=== PATIENT | female | born 1975 | race Caucasian/White ===

== ENCOUNTER 2018-03-17 18:15 | Emergency (ER) | payer OTHER ==
[~2018-03-17] VITALS: Ht 165.1 cm; Wt 95.0 kg
[2018-03-17 18:22] VITALS: BP 140/84; PULSE 100; RESP 18; TEMP 98.4; O2SAT 98
[2018-03-17] MEDS ORDERED: LEXA10TA PO (20:49)
[2018-03-17] MEDS ORDERED: WELL200T (20:49)
[2018-03-17] MEDS ORDERED: ADVA100A INH (20:49)
[2018-03-17] MEDS ORDERED: DOXY1CAP74 PO (20:49)
--- NOTE | 2018-03-17 20:59 | PD ---
HPI Chief Complaint: Abnormal Results Time Seen by Provider: 20:50 Travel History International Travel<30 days: Yes Contact w/Intl Traveler<30days: Yes Name of Country Traveled to: [place] Traveled to known affect area: No History of Present Illness HPI 42-year-old female with no significant medical history presents emergency department at the instruction of primary care provider for evaluation of elevated white count. Patient returned from [facility] approximately 9 days ago. Shortly after she states she began having a sore neck. It was not stiff. She had no other symptoms. She went and was evaluated and lab work was ordered. She was started on doxycycline 3 days ago. Lab work was completed and showed a white count 18.5 and the patient was advised to come to the emergency department. Patient states she has had no fever chills. She has noticed lymph nodes on the left anterior cervical chain and this morning submental. She denies any cough or chest congestion. She has no significant pain. She has no other symptoms to report. PFSH Past Medical History Asthma: Yes Depression: Yes Immunizations Current: Yes Ulcer: Yes Tetanus Vaccination: < 5 Years Influenza Vaccination: No ?: Unknown LMP: UNKNOWN Past Surgical History Tonsillectomy: Yes (1997) Other Surgery: Yes (hiatal hernia) Social History Alcohol Use: No Tobacco Use: No Substance Use: No Allergies-Medications (Allergen,Severity, Reaction): Coded Allergies: metformin (Verified Allergy, Unknown, 03/17/18) Reported Meds & Prescriptions Reported Meds & Active Scripts Active Reported Doxycycline 40 Mg Cap 40 Mg PO DAILY Wellbutrin SR 12 HR (Bupropion HCl) 200 Mg Tab 200 Mg Q12HR Lexapro (Escitalopram Oxalate) 10 Mg Tab 10 Mg PO DAILY Advair Diskus Inh (Fluticasone-Salmeterol Inh) 100-50 Mcg/Blist Aer 1 Puff INH BID Rinse mouth after use. Review of Systems Except as stated in HPI: all other systems reviewed are Neg Physical Exam Narrative GENERAL: Well-nourished female patient, in no acute distress SKIN: Focused skin assessment warm/dry. HEAD: Atraumatic. Normocephalic. EYES: Pupils equal and round. No scleral icterus. No injection or drainage. ENT: No nasal bleeding or discharge. Mucous membranes pink and moist. NECK: Trachea midline. No JVD. There are palpable lymph nodes along the left anterior cervical chain. There is one palpable submental lymph node. .No menigimiscus CARDIOVASCULAR: Regular rate and rhythm. No murmur appreciated. RESPIRATORY: No accessory muscle use. Clear to auscultation. Breath sounds equal bilaterally. GASTROINTESTINAL: Abdomen soft, non-tender, nondistended. Hepatic and splenic margins not palpable. MUSCULOSKELETAL: No obvious deformities. No clubbing. No cyanosis. No edema. NEUROLOGICAL: Awake and alert. No obvious cranial nerve deficits. Motor grossly within normal limits. Normal speech. PSYCHIATRIC: Appropriate mood and affect; insight and judgment normal. Data Data Last Documented VS Vital Signs Date Time Temp Pulse Resp B/P (MAP) Pulse Ox O2 Delivery O2 Flow Rate FiO2 03/17/18 22:22 20 03/17/18 21:23 Room Air 03/17/18 18:22 98.4 100 140/84 (102) 98 Orders Orders Complete Blood Count With Diff (03/17/18 21:04) Basic Metabolic Panel (Bmp) (03/17/18 21:04) Urinalysis - C+S If Indicated (03/17/18 21:) Iv Access Insert/Monitor (03/17/18 21:04) Ecg Monitoring (03/17/18 21:04) Oximetry (03/17/18 21:04) Oxygen Administration (03/17/18 21:04) Chest, Single Ap (03/17/18 21:04) Sodium Chloride 0.9% Flush (Ns Flush) (03/17/18 21:15) Ed Urine Pregnancytest Poc (03/17/18 21:04) Sodium Chlor 0.9% 1000 Ml Inj (Ns 1000 M (03/17/18 21:15) Ketorolac Inj (Toradol Inj) (03/17/18 21:15) Ldh Serum (03/17/18 22:39) Flow Cytometry (03/17/18 22:39) Labs Laboratory Tests Test 03/17/18 21:10 03/17/18 21:15 Urine Color YELLOW Urine Turbidity HAZY Urine pH 5.0 Urine Specific [place] 1.010 Urine Protein NEG mg/dL Urine Glucose (UA) NEG mg/dL Urine Ketones NEG mg/dL Urine Occult Blood SMALL Urine Nitrite NEG Urine Bilirubin NEG Urine Urobilinogen LESS THAN 2 mg/dL Urine Leukocyte Esterase NEG Urine RBC LESS THAN 1 /hpf Urine Squamous Epithelial Cells 2 /hpf Urine Mucus FEW /lpf Microscopic Urinalysis Comment CULT NOT INDICATED White Blood Count 33.2 TH/MM3 Red Blood Count 3.75 MIL/MM3 Hemoglobin 11.2 GM/DL Hematocrit 32.9 % Mean Corpuscular Volume 87.7 FL Mean Corpuscular Hemoglobin 29.8 PG Mean Corpuscular Hemoglobin Concent 34.0 % Red Cell Distribution Width 15.4 % Platelet Count 87 TH/MM3 Mean Platelet Volume 8.3 FL Neutrophils (%) (Auto) 6.3 % Lymphocytes (%) (Auto) 92.2 % Monocytes (%) (Auto) 0.6 % Eosinophils (%) (Auto) 0.4 % Basophils (%) (Auto) 0.5 % Neutrophils # (Auto) 2.1 TH/MM3 Lymphocytes # (Auto) 30.6 TH/MM3 Monocytes # (Auto) 0.2 TH/MM3 Eosinophils # (Auto) 0.1 TH/MM3 Basophils # (Auto) 0.2 TH/MM3 CBC Comment AUTO DIFF Differential Total Cells Counted 100 Neutrophils % (Manual) 5 % Band Neutrophils % 1 % Lymphocytes % 94 % Neutrophils # (Manual) 2.0 TH/MM3 Differential Comment FINAL DIFF MANUAL Toxic Granulation 2+ Platelet Estimate LOW Platelet Morphology Comment NORMAL Blood Urea Nitrogen 16 MG/DL Creatinine 0.99 MG/DL Random Glucose 113 MG/DL Calcium Level 8.9 MG/DL Sodium Level 138 MEQ/L Potassium Level 4.1 MEQ/L Chloride Level 105 MEQ/L Carbon Dioxide Level 23.4 MEQ/L Anion Gap 10 MEQ/L Estimat Glomerular Filtration Rate 61 ML/MIN MDM Medical Decision Making Medical Screen Exam Complete: Yes Emergency Medical Condition: Yes Medical Record Reviewed: Yes Differential Diagnosis lymphoma versus leukemia vs leukocytosis versus infectious process versus dehydration Narrative Course 42-year-old female presents emergency department for evaluation of elevated white count of 18.5. Patient has been on doxycycline for the last 3 days. She has not otherwise been ill. It was in case the white count was due to infection. Patient appears well. Her vital signs are stable. Laboratory Tests Test 03/17/18 21:10 03/17/18 21:15 Urine Color YELLOW Urine Turbidity HAZY Urine pH 5.0 Urine Specific [place] 1.010 Urine Protein NEG mg/dL Urine Glucose (UA) NEG mg/dL Urine Ketones NEG mg/dL Urine Occult Blood SMALL Urine Nitrite NEG Urine Bilirubin NEG Urine Urobilinogen LESS THAN 2 mg/dL Urine Leukocyte Esterase NEG Urine RBC LESS THAN 1 /hpf Urine Squamous Epithelial Cells 2 /hpf Urine Mucus FEW /lpf Microscopic Urinalysis Comment CULT NOT INDICATED White Blood Count 33.2 TH/MM3 Red Blood Count 3.75 MIL/MM3 Hemoglobin 11.2 GM/DL Hematocrit 32.9 % Mean Corpuscular Volume 87.7 FL Mean Corpuscular Hemoglobin 29.8 PG Mean Corpuscular Hemoglobin Concent 34.0 % Red Cell Distribution Width 15.4 % Platelet Count 87 TH/MM3 Mean Platelet Volume 8.3 FL Neutrophils (%) (Auto) 6.3 % Lymphocytes (%) (Auto) 92.2 % Monocytes (%) (Auto) 0.6 % Eosinophils (%) (Auto) 0.4 % Basophils (%) (Auto) 0.5 % Neutrophils # (Auto) 2.1 TH/MM3 Lymphocytes # (Auto) 30.6 TH/MM3 Monocytes # (Auto) 0.2 TH/MM3 Eosinophils # (Auto) 0.1 TH/MM3 Basophils # (Auto) 0.2 TH/MM3 CBC Comment AUTO DIFF Blood Urea Nitrogen 16 MG/DL Creatinine 0.99 MG/DL Random Glucose 113 MG/DL Calcium Level 8.9 MG/DL Sodium Level 138 MEQ/L Potassium Level 4.1 MEQ/L Chloride Level 105 MEQ/L Carbon Dioxide Level 23.4 MEQ/L Anion Gap 10 MEQ/L Estimat Glomerular Filtration Rate 61 ML/MIN Last Impressions Chest X-Ray 03/17/18 210 Signed Impressions: CONCLUSION: No active disease. I discussed the patient with Dr. 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 He recommends first appt with the oncology office and LDH and flow cytometry be collected. Plan is discussed with the patient. She is in agreement with this plan of care. Diagnosis Primary Impression: Leukocytosis Qualified Codes: D72.820 - Lymphocytosis (symptomatic) Referrals: Russ Bautista MD [facility] Patient Instructions: General Instructions, Leukocytosis (ED) Additional Instructions: Contact the radiation oncology center and make an appointment with the first available stamping die maker/oncologist Return immediately with any acute worsening of symptoms Med/Other Pt SpecificInfo: No Change to Meds Disposition: 01 DISCHARGE HOME Condition: Stable Nazia Iyer YENIFER Mar 17, 2018 20:59
[2018-03-17] MEDS ORDERED: SODIUM CHLORIDE 0.9% FLUSH 10 ML FLUSH IVF PRN (21:15)
[2018-03-17] MEDS ORDERED: KETOROLAC TROMETHAMINE 30 MG/ML (IVP) VIAL IV PUSH ONE (21:15)
[2018-03-17] MEDS ORDERED: SODIUM CHLOR 0.9% 1000 ML INJ 1,000 ML IV ONE (21:15)
[2018-03-17 21:24] VITALS: RESP 20
[2018-03-17 21:46] LABS: AUTOMATED NEUTROPHIL # 2.1 TH/MM3 (1.8-7.7); BASOPHIL # 0.2 TH/MM3 (0-0.2); BASOPHIL % 0.5 % (0.0-2.0); EOSINOPHIL # 0.1 TH/MM3 (0-0.4); EOSINOPHIL % 0.4 % (0.0-4.0); HEMATOCRIT 32.9 % (35.0-46.0); HEMOGLOBIN 11.2 GM/DL (11.6-15.3); LYMPH % 92.2 % (9.0-44.0); LYMPHOCYTE # 30.6 TH/MM3 (1.0-4.8); MEAN CELL VOLUME 87.7 FL (80.0-100.0); MEAN CORPUSCULAR HEMOGLOBIN 29.8 PG (27.0-34.0); MEAN PLATELET VOLUME 8.3 FL (7.0-11.0); MONO % 0.6 % (0.0-8.0); MONOCYTE # 0.2 TH/MM3 (0-0.9); NEUT % 6.3 % (16.0-70.0); PLATELET COUNT 87 TH/MM3 (150-450); RED BLOOD COUNT 3.75 MIL/MM3 (4.00-5.30); RED CELL DISTRIBUTION WIDTH 15.4 % (11.6-17.2); WHITE BLOOD COUNT 33.2 TH/MM3 (4.0-11.0)
[2018-03-17 21:48] LABS: BILIRUBIN, URINE NEG (NEG); BLOOD, URINE SMALL (NEG); GLUCOSE,URINE NEG (NEG); KETONE, URINE NEG (NEG); MUCUS URINE FEW /lpf (OCC); NITRITE,URINE NEG (NEG); SQUAMOUS EPITHELIAL CELL URINE 2 /hpf (0-5); URINE COLOR YELLOW (YELLW/STRAW); URINE LEUKOCYTE ESTERASE NEG (NEG)
[2018-03-17 21:58] LABS: BICARBONATE 23.4 MEQ/L (21.0-32.0); CALCIUM 8.9 MG/DL (8.5-10.1); CREATININE 0.99 MG/DL (0.50-1.00)
--- NOTE | 2018-03-17 22:16 | RADRPT ---
EXAM DATE: 03/17/2018 9:46 PM EDT AGE/SEX: 42 years / Female INDICATIONS: Chest discomfort, abnormal blood work CLINICAL DATA: This is the patient's initial encounter. Patient reports that signs and symptoms have been present for 1 day and indicates a pain score of 0/10. MEDICAL/SURGICAL HISTORY: None. None. COMPARISON: No prior exams available for comparison. FINDINGS: A single AP view of the chest demonstrates the lungs to be symmetrically aerated without evidence of mass, infiltrate or effusion. The cardiomediastinal contours are unremarkable. Osseous structures a re intact. CONCLUSION: No active disease. Electronically signed by: Adolfo James MD 03/17/2018 10:14 PM EDT
[2018-03-17 22:22] VITALS: RESP 20
[2018-03-17 22:32] LABS: BANDS 1 % (0-6); LYMPHOCYTES 94 % (9-44); POLYS (SEG NEUTROPHILS) 5 % (16-70)
[2018-03-17 22:34] LABS: TOXIC GRANULATION 2+ (NORMAL)
== END 2018-03-17 23:23 | disposition home or self-care (01) ==
LOC: NEPC 18:15
DX: D72.820 Lymphocytosis (symptomatic) (principal); F32.9 Major depressive disorder, single episode, unspecified
CPT/HCPCS: 71045; 80048; 81001; 83615; 84703; 85007; 85027; 96361; 96374; 99284; J1885; J7030

== ENCOUNTER 2018-05-12 15:28 | Observation (INO) ==
[2018-05-12] MEDS ORDERED: Heparin Central Flush 100 UNIT/ML 5 ML Vial IV.FLUSH PRN (17:27)
[2018-05-12] MEDS ORDERED: Acetaminophen 325 MG Tablet PO PRN (18:24)
[2018-05-13] MEDS ORDERED: Heparin Central Flush 100 UNIT/ML 5 ML Vial IV.FLUSH SCH (09:00)
== END 2018-05-12 19:46 | disposition home or self-care (01) ==
LOC: HSDI
PROVIDERS: ADMIT Internal Medicine Hematology & Oncology; ATTEND Internal Medicine Hematology & Oncology
DX: C91.00 Acute lymphoblastic leukemia not having achieved remission

== ENCOUNTER 2018-08-16 08:09 | Inpatient (IN) ==
[2018-08-16 10:20] LABS: Baso % (Auto) 0.1 % (0.0-2.0); Eos % (Auto) 0.1 % (0.0-4.0); Hematocrit 22.5 % (35.0-46.0); Hemoglobin 7.6 gm/dL (11.6-15.3); Lymph # (Auto) 0.5 th/mm3 (1.0-4.8); Lymph % (Auto) 12.9 % (9.0-44.0); Mean Corpuscular HGB Conc 33.8 % (32.0-36.0); Mean Corpuscular Hemoglobin 33.6 pg (27.0-34.0); Mean Corpuscular Volume 99.6 fL (80.0-100.0); Mean Platelet Volume 7.2 fL (7.0-11.0); Mono # (Auto) 0.4 th/mm3 (0.0-0.9); Mono % (Auto) 9.8 % (0.0-8.0); Neut # (Auto) 2.9 th/mm3 (1.8-7.7); Neut % (Auto) 77.1 % (16.0-70.0); Platelet Count 257 th/mm3 (150-450); Red Blood Count 2.26 mil/mm3 (4.00-5.30); Red Cell Distribution Width 25.6 % (11.6-17.2); White Blood Count 3.7 th/mm3 (4.0-11.0)
[2018-08-16 10:38] LABS: Alanine Aminotransferase 22 U/L (10-53); Albumin 3.3 g/dL (3.4-5.0); Anion Gap 6 meq/L (5-15); Aspartate Aminotransferase 14 U/L (15-37); Blood Urea Nitrogen 10 mg/dL (7-18); Calcium 8.6 mg/dL (8.5-10.1); Carbon Dioxide 26.9 meq/L (21.0-32.0); Chloride 111 meq/L (98-107); Glomerular Filtration Rate 83 mL/min (>89); Glucose,Random 91 mg/dL (74-106); Potassium 3.6 meq/L (3.5-5.1); Sodium 144 meq/L (136-145)
[2018-08-16 10:40] LABS: Alkaline Phosphatase 64 U/L (45-117); Total Protein 6.1 g/dL (6.4-8.2)
[2018-08-16 10:54] LABS: Dimorphic RBC Present; Ovalocytes 1+; Platelet Estimate Normal (Normal); Platelet Morphology Normal (Normal); Tear Drop Cells 1+
[2018-08-16] MEDS: SODIUM CHLOR 0.9% IV.SIG SCH ×2 (15:26→18:15)
[2018-08-16] MEDS: MESNA IV.SIG SCH (15:26)
[2018-08-16] MEDS ORDERED: GRANISETRON IV.SIG ONE ×2 (17:00)
[2018-08-16] MEDS ORDERED: SODIUM CHLOR 0.9% IV.SIG ONE ×2 (17:00)
[2018-08-16] MEDS ORDERED: DEXAMETHASONE IV.SIG ONE ×2 (17:00)
[2018-08-16] MEDS: CYCLOPHOSPHAMIDE IV.SIG SCH (18:15)
[2018-08-16] MEDS ORDERED: Acetaminophen 325 MG Tablet PO PRN (19:27)
[2018-08-16] MEDS: GRANISETRON 1 MG PO SCH (20:47)
[2018-08-16] MEDS: ALPRAZolam 0.5 MG Tablet PO PRN (22:24)
[2018-08-16] MEDS: DEXTROSE 5% IV.SIG SCH ×2 (22:25)
[2018-08-16] MEDS: WATER IV.SIG SCH ×2 (22:25)
[2018-08-16] MEDS: SODIUM ACETATE IV.SIG SCH ×2 (22:25)
--- NOTE | 2018-08-16 23:20 | MH ---
cc: Russ Bautista MD DATE OF ADMISSION: 08/16/2018 REASON FOR ADMISSION: A 42-year-old female admitted for consolidation chemotherapy on a hyper-CVAD regimen. 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 PATIENT PROFILE: The patient is a 42-year-old female. She is single. She was once and approximately 20 years ago. She has no children. She was born in [place] and has lived in [place] since 2016. She went to the [employer] in [place] and studied chemistry. 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 Alcohol intake is 1-2 drinks a week. She stopped smoking 25 years ago and had smoked a pack of cigarettes per day for 5 years. HISTORY OF PRESENT ILLNESS: The patient is a 42-year-old female who developed neck stiffness in 03/2018. She went to the emergency room at [facility] after her primary care physician found an elevated white count. On 03/17/2018, she had a hemoglobin of 11.2, hematocrit 32, white count 33,000, platelet count 87,000. 69% of the cells were lymphoblasts. She was diagnosed with acute lymphoblastic leukemia. I referred her to the [facility] where she saw Dr. Pryor. She was hospitalized with a diagnosis of acute lymphoblastic leukemia, which was [place] chromosome negative. She was started on treatment on 03/24/2018 with a hyper-CVAD regimen. She has entered a remission. She is due for a bone marrow transplant in 10/2018. Dr. Pryor from [facility] asked me to give her her current round of chemotherapy locally, so she would not have to go to [place]. She is now admitted to [place] for hyper-CVAD chemotherapy where she will receive Cytoxan IV q. 12 hours for 6 treatments, dexamethasone 40 mg daily for 4 doses, doxorubicin on day 4 and vincristine on day 4. She will also receive mesna to prevent cystitis. On day 2, she will receive intrathecal methotrexate 12 mg. On day 4, she will receive vincristine 2 mg. She is doing well. She feels well. She is having no neurologic problems. LABORATORY DATA: On admission, hemoglobin is 11.6, white count 3700, and platelets are 257,000. CMP is unremarkable. BUN is 10 with creatinine 0.7. SURGICAL HISTORY: 1. Hiatal hernia repair in 2001. 2. Repair of deviated septum. 3. Tonsillectomy. PAST MEDICAL HISTORY: 1. Acute lymphoblastic leukemia, diagnosed 03/2018. 2. Mild asthma. 3. Gastroesophageal reflux. 4. Occasional migraines. 5. Obsessive-compulsive disorder, taking Lexapro and Wellbutrin. ALLERGIES: METFORMIN. FAMILY HISTORY: The patient's mother is alive as well as father. Father has prostate cancer. She has 2 sisters and a brother living, REVIEW OF SYSTEMS: Notable for minimal fatigue. 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 PHYSICAL EXAMINATION: GENERAL: Reveals a well-appearing female. VITAL SIGNS: She is afebrile. Temperature is 98.5, although on admission, she had 100 temperature. Pulse is 80, respiratory rate 18, blood pressure 150/80, O2 saturation 99%. The patient appears well. HEENT: Sclerae and conjunctivae normal. Oropharynx is unremarkable. NECK: There is no cervical, supraclavicular, axillary or inguinal adenopathy. HEART: Regular rate and rhythm. LUNGS: Clear. ABDOMEN: Without hepatosplenomegaly or masses. EXTREMITIES: Without edema. MUSCULOSKELETAL: No bone pain. NEUROLOGIC: No weakness. Cognition and affect normal. SKIN: Normal. The patient has a PICC line in place in the arm, which looks fine. ASSESSMENT AND PLAN: A 42-year-old female with acute lymphoblastic leukemia. She is undergoing consolidation therapy. Orders have been written. She has received 2 units of packed cells, which have been irradiated. She will continue with her current chemotherapy with Cytoxan, mesna to protect the bladder, Decadron, Adriamycin, and vincristine. Following the completion of the chemotherapy, she will be discharged from the hospital and receive Neulasta this coming Tuesday. She will receive intrathecal methotrexate 12 mg on . I am surprised to see the temperature of 100 on admission. When repeated, it is now normal. It will be watched closely. She has not been ill. In 10/2018, she will undergo an allogenic bone marrow transplant and hopefully following this there will be no further therapy. MD CHAD Melendrez/maryjo , 10:35 PM , 10:48 PM MEGAN
[2018-08-16] MEDS ORDERED: Heparin Central Flush 100 UNIT/ML 5 ML Vial IV.FLUSH PRN (23:36)
[2018-08-17] MEDS: GRANISETRON 1 MG PO SCH ×2 (05:13→12:36)
[2018-08-17 06:17] LABS: Baso % (Auto) 0.2 % (0.0-2.0); Eos % (Auto) 0.1 % (0.0-4.0); Hematocrit 31.2 % (35.0-46.0); Hemoglobin 10.6 gm/dL (11.6-15.3); Lymph # (Auto) 0.4 th/mm3 (1.0-4.8); Lymph % (Auto) 6.3 % (9.0-44.0); Mean Corpuscular HGB Conc 34.1 % (32.0-36.0); Mean Corpuscular Hemoglobin 32.4 pg (27.0-34.0); Mean Corpuscular Volume 95.1 fL (80.0-100.0); Mean Platelet Volume 7.2 fL (7.0-11.0); Mono # (Auto) 0.1 th/mm3 (0.0-0.9); Mono % (Auto) 1.4 % (0.0-8.0); Neut # (Auto) 5.2 th/mm3 (1.8-7.7); Platelet Count 238 th/mm3 (150-450); Red Blood Count 3.28 mil/mm3 (4.00-5.30); Red Cell Distribution Width 19.1 % (11.6-17.2); White Blood Count 5.6 th/mm3 (4.0-11.0)
[2018-08-17] MEDS: CYCLOPHOSPHAMIDE IV.SIG SCH ×2 (06:18→18:08)
[2018-08-17] MEDS: SODIUM CHLOR 0.9% IV.SIG SCH ×5 (06:18→18:08)
[2018-08-17] MEDS: Escitalopram 10 MG Tablet PO SCH (08:30)
[2018-08-17] MEDS: buPROPion 150 MG XL 24 HR Tablet PO SCH (08:30)
[2018-08-17] MEDS: valACYclovir 500 MG Tab PO SCH (08:30)
[2018-08-17] MEDS: Heparin Central Flush 100 UNIT/ML 5 ML Vial IV.FLUSH SCH (08:31)
[2018-08-17 08:40] LABS: Dimorphic RBC Present; Platelet Estimate Normal (Normal); Platelet Morphology Normal (Normal); Tear Drop Cells 1+
[2018-08-17 08:58] LABS: Activated Partial Thrombo Time 24.4 sec (23.4-31.7); INR 1.1 Ratio
--- NOTE | 2018-08-17 09:26 | P.PNONC ---
Subjective Interval history: Afebrile. Patient sitting up in bed, currently working on her computer. Receiving chemotherapy, tolerating well. She denies abdominal pain, nausea, diarrhea. Objective Vital Signs/Intake & Output: Vital Signs 08/16/18 09:17 08/16/18 12:00 08/16/18 13:15 Temperature 98.9 F 98.1 F 98.7 F Pulse Rate 84 80 Respiratory Rate 18 18 18 Blood Pressure 122/76 127/79 Pulse Oximetry 08/16/18 13:31 08/16/18 16:05 08/16/18 17:07 Temperature 97.4 F L 98.8 F Pulse Rate 74 75 Respiratory Rate 18 18 Blood Pressure 132/82 143/82 H Pulse Oximetry 99 100 98 08/16/18 19:20 08/16/18 19:29 08/16/18 19:36 Temperature 100.0 F H 100 F H Pulse Rate 88 88 Respiratory Rate 18 18 18 Blood Pressure 127/70 127/70 Pulse Oximetry 99 99 08/16/18 21:08 08/17/18 00:00 08/17/18 04:00 Temperature 98.5 F 97.9 F 98.2 F Pulse Rate 85 77 78 Respiratory Rate 18 18 18 Blood Pressure 153/84 H 117/67 127/71 Pulse Oximetry 98 98 08/17/18 08:24 Temperature 98 F Pulse Rate 82 Respiratory Rate 18 Blood Pressure 130/66 Pulse Oximetry 98 Intake & Output 08/16/18 08/17/18 08/17/18 18:59 06:59 18:59 Intake Total 0 / 0 791 / 791 Output Total 1300 / 1300 Balance 0 / 0 -509 / -509 Weight 92.3 kg 92 kg Intake: IV 311 / 311 Cytoxan Inj 594 MG In NS Inj 250 / 250 250 ML @ 83.333 mls/hr IV.SIG Q12H [facility] Rx#:[id number] Decadron Inj 40 MG Kytril Inj 1 61 / 61 MG In NS Inj 50 ML @ 244 mls/ hr IV.SIG ONCE ONE Rx#:[id number] Oral 480 / 480 Intake (Blood Product) Amt 0 / 0 0 / 0 Rbc As-3 Leukoreduced Irrad 0 / 0 Unit [id number] Rbc As-3 Leukoreduced Irrad 0 / 0 Unit [id number] Output: Urine 1300 / 1300 Other: Date of Last Bowel Movement 08/16/18 Weight On Admission 92.3 kg Result Diagrams: 08/17/18 05:00 08/16/18 09:45 Laboratory Results: Laboratory Results - last 24 hr 08/16/18 08/16/18 08/16/18 09:45 09:45 10:00 WBC 3.7 L RBC 2.26 L Hgb 7.6 L Hct 22.5 L MCV 99.6 MCH 33.6 MCHC 33.8 RDW 25.6 H D Plt Count 257 MPV 7.2 Prelim Diff (Auto) Slide review pending Neut % (Auto) 77.1 H Lymph % (Auto) 12.9 Smyth % (Auto) 9.8 H Eos % (Auto) 0.1 Baso % (Auto) 0.1 Neut # (Auto) 2.9 Lymph # (Auto) 0.5 L Smyth # (Auto) 0.4 Eos # (Auto) 0.0 Baso # (Auto) 0.0 WBC Differential . Diff Scan Auto diff confirmed Differential Comment . Platelet Estimate Normal Platelet Morphology Normal Dimorphic RBCs Present H Tear Drop Cells 1+ H Ovalocytes 1+ H PT INR APTT Sodium 144 Potassium 3.6 Chloride 111 H Carbon Dioxide 26.9 Anion Gap 6 BUN 10 Creatinine 0.76 Estimated GFR 83 L Random Glucose 91 Calcium 8.6 Total Bilirubin 0.3 AST 14 L ALT 22 Alkaline Phosphatase 64 Total Protein 6.1 L Albumin 3.3 L Blood Type O Positive Antibody Screen Negative MTS Gel Crossmatch See Detail 08/17/18 08/17/18 05:00 08:30 WBC 5.6 D RBC 3.28 L Hgb 10.6 L D Hct 31.2 L MCV 95.1 D MCH 32.4 MCHC 34.1 RDW 19.1 H D Plt Count 238 MPV 7.2 Prelim Diff (Auto) Slide review pending Neut % (Auto) 92.0 H Lymph % (Auto) 6.3 L Smyth % (Auto) 1.4 Eos % (Auto) 0.1 Baso % (Auto) 0.2 Neut # (Auto) 5.2 Lymph # (Auto) 0.4 L Smyth # (Auto) 0.1 Eos # (Auto) 0.0 Baso # (Auto) 0.0 WBC Differential . Diff Scan Auto diff confirmed Differential Comment . Platelet Estimate Normal Platelet Morphology Normal Dimorphic RBCs Present H Tear Drop Cells 1+ H Ovalocytes PT 11.0 INR 1.1 APTT 24.4 Sodium Potassium Chloride Carbon Dioxide Anion Gap BUN Creatinine Estimated GFR Random Glucose Calcium Total Bilirubin AST ALT Alkaline Phosphatase Total Protein Albumin Blood Type Antibody Screen MTS Gel Crossmatch Medications: Active Medications Generic Name Dose Route Start Last Admin Trade Name Freq PRN Reason Stop Dose Admin Alprazolam 0.5 mg 08/16/18 20:00 08/16/18 22:24 Xanax PO 0.5 mg HS PRN Administration SLEEP Bupropion HCl 150 mg 08/17/18 09:00 08/17/18 08:30 Wellbutrin Xl PO 150 mg DAILY CORINA Administration Escitalopram Oxalate 10 mg 08/17/18 09:00 08/17/18 08:30 Lexapro PO 10 mg DAILY CORINA Administration Granisetron HCl 1 mg 08/16/18 13:30 08/17/18 05:13 Kytril PO 08/20/18 01:31 1 mg Q12H CORINA Administration Heparin Sodium (Porcine) 0 unit 08/17/18 09:00 08/17/18 08:31 Heparin Central Flush IV.FLUSH 500 unit DAILY CORINA Administration Mes[place] 1,188 mg/ Sodium 511.88 mls @ 21.328 mls/hr 08/16/18 13:00 08/16/18 15: 26 Chloride IV.SIG 08/19/18 08:59 21.33 mls/hr DAILY CORINA Administration Cyclophosphamide 594 mg/ 250 mls @ 83.333 mls/hr 08/16/18 14:00 08/17/18 06: 18 Sodium Chloride IV.SIG 08/19/18 04:59 83.33 mls/hr Q12H CORINA Administration Sodium Acetate 100 meq/ 1,025 mls @ 70 mls/hr 08/16/18 16:30 08/16/18 22:25 Dextrose IV.SIG 70 mls/hr .[id number] CORINA Administration Sodium Chloride 0 ml 08/17/18 09:00 08/17/18 08:31 Ns Flush IV.FLUSH 10 ml DAILY CORINA Administration Valacyclovir HCl 500 mg 08/17/18 09:00 08/17/18 08:30 Valtrex PO 500 mg DAILY CORINA Administration Objective Remarks: GENERAL: Well-nourished, well-developed female patient, in no acute distress. SKIN: Warm and dry. HEAD: Normocephalic. EYES: No scleral icterus. No injection or drainage. NECK: Supple, trachea midline. CARDIOVASCULAR: Regular rate and rhythm without murmurs. RESPIRATORY: Breath sounds equal bilaterally. No accessory muscle use. GASTROINTESTINAL: Abdomen soft, non-tender, nondistended. EXTREMITIES: No cyanosis, or edema. MUSCULOSKELETAL: Adequate muscle tone. NEUROLOGICAL: No obvious focal deficit. Awake, alert, and oriented x3. PSYCHIATRIC: Appropriate mood and affect; insight and judgment normal. Assessment/Plan - Plan Ms. Brarett is a 42-year-old female who is been admitted to this facility for consolidation chemotherapy on hyper CVAD regimen. Plan: 1. Acute lymphoblastic leukemia, admitted for consolidation chemotherapy with hyper-CVAD regimen. Patient tolerating well, scheduled for intrathecal methotrexate this afternoon. 2.Continue to monitor CBC and CMP. - Attending Statement The exam, history, and the medical decision-making described in the above note were completed with the assistance of the mid-level provider. I reviewed and agree with the findings presented. I attest that I had a [id number] encounter with the patient on the same day, and personally performed and documented my assessment and findings in the medical record. She tolerated her intrathecal methotrexate uneventfully. She is doing well. She is tolerating the chemotherapy. I spoke with the nursing staff and I believe she will receive the Adriamycin and vincristine on Tuesday and subsequently be discharged. Outpatient follow-up discussed.
[2018-08-17] MEDS: ALPRAZolam 0.5 MG Tablet PO PRN ×2 (10:05→21:41)
[2018-08-17] MEDS ORDERED: SODIUM CHLOR 0.9% IT ONE ×2 (10:30)
[2018-08-17] MEDS ORDERED: METHOTREXATE IT ONE ×2 (10:30)
--- NOTE | 2018-08-17 10:59 | P.RAD ---
Post Procedure Progress Note - Pre Procedure Diagnosis (1) ALL (acute lymphoid leukemia) in remission - Post Procedure Diagnosis (1) ALL (acute lymphoid leukemia) in remission - Procedure Information Procedure Date: 08/17/18 Supervising Radiologist: Jair Rainey MD Estimated blood loss (mL): 0 Anesthesia: Local - Plan of Activity Patient to Unit: ROPU Patient Condition: Good Additional Comments: LP completed without difficulty. Position of the needle confirmed in the AP and lateral projection 2 cc of clear csf removed. Chemo dose verified Chemo injected without difficulty. Pt tolerated the procedure well. See PACS Report for procedural detail/treatment.
[2018-08-17] MEDS: MESNA IV.SIG SCH (16:24)
[2018-08-17] MEDS: DEXAMETHASONE IV.SIG SCH ×2 (17:19)
[2018-08-17] MEDS: GRANISETRON IV.SIG SCH ×2 (17:19)
[2018-08-17] MEDS: WATER IV.SIG SCH ×2 (18:09)
[2018-08-17] MEDS: SODIUM ACETATE IV.SIG SCH ×2 (18:09)
[2018-08-17] MEDS: DEXTROSE 5% IV.SIG SCH ×2 (18:09)
[2018-08-18] MEDS: GRANISETRON 1 MG PO SCH ×2 (05:01→18:28)
[2018-08-18 05:10] LABS: Hematocrit 30.3 % (35.0-46.0); Hemoglobin 10.5 gm/dL (11.6-15.3); Lymph # (Auto) 0.3 th/mm3 (1.0-4.8); Lymph % (Auto) 4.8 % (9.0-44.0); Mean Corpuscular HGB Conc 34.8 % (32.0-36.0); Mean Corpuscular Volume 94.8 fL (80.0-100.0); Mean Platelet Volume 7.6 fL (7.0-11.0); Mono # (Auto) 0.1 th/mm3 (0.0-0.9); Mono % (Auto) 2.3 % (0.0-8.0); Neut % (Auto) 92.9 % (16.0-70.0); Platelet Count 240 th/mm3 (150-450); Red Cell Distribution Width 20.3 % (11.6-17.2); White Blood Count 5.4 th/mm3 (4.0-11.0)
[2018-08-18 05:38] LABS: Albumin 3.4 g/dL (3.4-5.0); Anion Gap 8 meq/L (5-15); Aspartate Aminotransferase 9 U/L (15-37); Blood Urea Nitrogen 12 mg/dL (7-18); Calcium 8.4 mg/dL (8.5-10.1); Carbon Dioxide 28.1 meq/L (21.0-32.0); Chloride 109 meq/L (98-107); Glomerular Filtration Rate Greater Than 89 mL/min (>89); Glucose,Random 153 mg/dL (74-106); Potassium 3.8 meq/L (3.5-5.1); Sodium 145 meq/L (136-145)
[2018-08-18 05:42] LABS: Alanine Aminotransferase 23 U/L (10-53); Alkaline Phosphatase 66 U/L (45-117); Total Protein 6.2 g/dL (6.4-8.2)
[2018-08-18] MEDS: SODIUM CHLOR 0.9% IV.SIG SCH ×5 (06:01→19:27)
[2018-08-18] MEDS: CYCLOPHOSPHAMIDE IV.SIG SCH ×2 (06:01→19:27)
--- NOTE | 2018-08-18 07:30 | IR ---
EXAM DATE: 08/17/2018 11:11 AM EST AGE/SEX: 42 years / Female INDICATIONS: Patient presents with acute lymphoblastic leukemia here for a lumbar puncture with dose of chemotherapy. CLINICAL DATA: This is the patient's initial encounter. Patient reports that signs and symptoms have been present for 4 - 6 months and indicates a pain score of 0/10. MEDICAL/SURGICAL HISTORY: Arthritis. acute lymphoblastic leukemia Tonsillectomy. Deviated sept um, Hiatal Hernia repair COMPARISON: No prior exams available for comparison. FLUORO TIME (min): .8 IMAGE SERIES: 2 ACCESS SITE: L3-4 LUMBAR PUNCTURE TIME: 10:50 hours PROCEDURE: 1. Fluoroscopic guided lumbar puncture. 2. Instillation of chemotherapy. The risks, benefits and alternatives to the procedure were explained and verbal and written consent w as obtained. The site was prepped in sterile fashion. Full sterile technique was used, including ca p, mask, sterile gloves and gown and a large sterile sheet. Hand hygiene and 2% chlorhexidine and/or betadine/alcohol prep was utilized per protocol for cutaneous antisepsis. The skin and subcutaneous tissues were infiltrated with local anesthetic solution. With fluoroscopic guidance the lumbar thecal sac was punctured at the level above. There was immediat e return of clear CSF. Position was confirmed in the AP and lateral projections. The prescribed chemo therapeutic was injected. The patient tolerated the procedure well and there were no complications. CONCLUSION: 1. Uncomplicated fluoroscopically guided lumbar puncture with chemotherapy injection. Electronically signed by: Jair Rainey MD 08/18/2018 7:29 AM EST
[2018-08-18 08:15] LABS: Dimorphic RBC Present; Ovalocytes 1+; Polychromasia 2.5 % (0.0-1.9); Tear Drop Cells 1+
--- NOTE | 2018-08-18 09:13 | P.PNONC ---
Subjective Interval history: Feels well. No complaints. Tolerating chemotherapy well. Objective Vital Signs/Intake & Output: Vital Signs 08/17/18 11:22 08/17/18 12:20 08/17/18 16:22 Temperature 97.4 F L 98 F 98.2 F Pulse Rate 80 82 75 Respiratory Rate 18 18 18 Blood Pressure 120/70 132/75 137/74 Pulse Oximetry 98 100 98 08/17/18 20:00 08/18/18 00:00 08/18/18 04:00 Temperature 98.7 F 98.2 F 97.7 F Pulse Rate 76 79 77 Respiratory Rate 18 18 16 Blood Pressure 136/38 L 125/70 137/80 Pulse Oximetry 94 L 96 98 Intake & Output 08/17/18 08/18/18 08/18/18 18:59 06:59 18:59 Intake Total 3807.88 / 3807.88 750 / 750 Output Total 1600 / 1600 1900 / 1900 Balance 2207.88 / 2207.88 -1150 / -1150 Weight 93 kg Intake: IV 1847.88 / 1847.88 250 / 250 Cytoxan Inj 594 MG In NS Inj 250 / 250 250 / 250 250 ML @ 83.333 mls/hr IV.SIG Q12H [facility] Rx#:[id number] Decadron Inj 40 MG Kytril Inj 1 61 / 61 MG In NS Inj 50 ML @ 244 mls/ hr IV.SIG Q24H [facility] Rx#:[id number] Mesnex Inj 1,188 MG In NS Inj 511.88 / 511.88 500 ML @ 21.328 mls/hr IV.SIG DAILY [facility] Rx#:[id number] Sodium Acetate Inj 100 MEQ In 1025 / 1025 D5W Inj 1,000 ML @ 70 mls/hr IV .SIG .[id number] [facility] Rx#:[id number] Oral 1960 / 1960 500 / 500 Output: Urine 1600 / 1600 1900 / 1900 Other: Date of Last Bowel Movement 08/16/18 08/16/18 Result Diagrams: 08/18/18 04:00 08/18/18 04:00 Laboratory Results: Laboratory Results - last 24 hr 08/18/18 08/18/18 04:00 04:00 WBC 5.4 RBC 3.20 L Hgb 10.5 L Hct 30.3 L MCV 94.8 MCH 33.0 MCHC 34.8 RDW 20.3 H Plt Count 240 MPV 7.6 Prelim Diff (Auto) Slide review pending Neut % (Auto) 92.9 H Lymph % (Auto) 4.8 L [place] % (Auto) 2.3 Eos % (Auto) 0.0 Baso % (Auto) 0.0 Neut # (Auto) 5.0 Lymph # (Auto) 0.3 L [place] # (Auto) 0.1 Eos # (Auto) 0.0 Baso # (Auto) 0.0 WBC Differential . Diff Scan Auto diff confirmed Differential Comment . Dimorphic RBCs Present H Polychromasia 2.5 H Tear Drop Cells 1+ H Ovalocytes 1+ H Sodium 145 Potassium 3.8 Chloride 109 H Carbon Dioxide 28.1 Anion Gap 8 BUN 12 Creatinine 0.65 Estimated GFR Greater than 89 Random Glucose 153 H Calcium 8.4 L Total Bilirubin 0.3 AST 9 L ALT 23 Alkaline Phosphatase 66 Total Protein 6.2 L Albumin 3.4 Imaging Studies: Impressions Lumbar Puncture 08/17/18 00:00 CONCLUSION: 1. Uncomplicated fluoroscopically guided lumbar puncture with chemotherapy injection. Medications: Active Medications Generic Name Dose Route Start Last Admin Trade Name Freq PRN Reason Stop Dose Admin Alprazolam 0.5 mg 08/17/18 11:33 08/17/18 21:41 Xanax PO 0.5 mg Q8H PRN Administration Sleep or anxiety Bupropion HCl 150 mg 08/17/18 09:00 08/17/18 08:30 Wellbutrin Xl PO 150 mg DAILY [facility] Administration Escitalopram Oxalate 10 mg 08/17/18 09:00 08/17/18 08:30 Lexapro PO 10 mg DAILY [facility] Administration Granisetron HCl 1 mg 08/16/18 13:30 08/18/18 05:01 Kytril PO 08/20/18 01:31 1 mg Q12H [facility] Administration Heparin Sodium (Porcine) 0 unit 08/17/18 09:00 08/17/18 08:31 Heparin Central Flush IV.FLUSH 500 unit DAILY [facility] Administration [place] 1,188 mg/ Sodium 511.88 mls @ 21.328 mls/hr 08/16/18 13:00 08/17/18 16: 24 Chloride IV.SIG 08/19/18 08:59 21.33 mls/hr DAILY [facility] Administration Cyclophosphamide 594 mg/ 250 mls @ 83.333 mls/hr 08/16/18 14:00 08/18/18 06: 01 Sodium Chloride IV.SIG 08/19/18 04:59 83.3 mls/hr Q12H [facility] Administration Sodium Acetate 100 meq/ 1,025 mls @ 70 mls/hr 08/16/18 16:30 08/17/18 18:09 Dextrose IV.SIG 70 mls/hr .[id number] [facility] Administration Dexamethasone Sodium Phosphate 61 mls @ 244 mls/hr 08/17/18 17:00 08/17/18 17 :35 40 mg/ Granisetron HCl 1 mg/ IV.SIG 08/19/18 17:14 Infused Sodium Chloride Q24H [facility] Infusion Sodium Chloride 0 ml 08/17/18 09:00 08/17/18 08:31 Ns Flush IV.FLUSH 10 ml DAILY [facility] Administration Valacyclovir HCl 500 mg 08/17/18 09:00 08/17/18 08:30 Valtrex PO 500 mg DAILY [facility] Administration Objective Remarks: GENERAL: Well-nourished, well-developed patient. SKIN: Warm and dry. HEAD: Normocephalic. EYES: No scleral icterus. No injection or drainage. NECK: Supple, trachea midline. No JVD or lymphadenopathy. LYMPHATIC: No adenopathy. CARDIOVASCULAR: Regular rate and rhythm without murmurs. RESPIRATORY: Breath sounds equal bilaterally. No accessory muscle use. GASTROINTESTINAL: Abdomen soft, non-tender, nondistended. EXTREMITIES: No cyanosis, or edema. MUSCULOSKELETAL: Adequate muscle tone. NEUROLOGICAL: No obvious focal deficit. Awake, alert, and oriented x3. PSYCHIATRIC: Appropriate mood and affect; insight and judgment normal. PICC line looks good Assessment/Plan - Plan Ms. Barrett is a 42-year-old female who was admitted to this facility for consolidation chemotherapy on hyper CVAD regimen. Plan: 1: she is tolerating therapy well. It is my understanding that she will complete her Adriamycin and vincristine late Tuesday afternoon. Once she has received the Adriamycin and vincristine she can go home. She is very reliable. She has an appointment with me early next week. Arrangements have been made for monitoring her CBC and platelet count. She knows what medicines she is to take as an outpatient which include Bactrim, Valtrex and when her counts are low she takes fluconazole and I believe Levaquin or ciprofloxacin.
[2018-08-18] MEDS: Escitalopram 10 MG Tablet PO SCH (09:32)
[2018-08-18] MEDS: valACYclovir 500 MG Tab PO SCH (09:32)
[2018-08-18] MEDS: buPROPion 150 MG XL 24 HR Tablet PO SCH (09:32)
[2018-08-18] MEDS: Heparin Central Flush 100 UNIT/ML 5 ML Vial IV.FLUSH SCH (09:33)
[2018-08-18] MEDS: MESNA IV.SIG SCH (17:40)
[2018-08-18] MEDS: GRANISETRON IV.SIG SCH ×2 (18:13)
[2018-08-18] MEDS: DEXAMETHASONE IV.SIG SCH ×2 (18:13)
[2018-08-18] MEDS: SODIUM ACETATE IV.SIG SCH ×4 (18:14→18:15)
[2018-08-18] MEDS: WATER IV.SIG SCH ×4 (18:14→18:15)
[2018-08-18] MEDS: DEXTROSE 5% IV.SIG SCH ×4 (18:14→18:15)
[2018-08-18] MEDS: ALPRAZolam 0.5 MG Tablet PO PRN (20:56)
[2018-08-19] MEDS: GRANISETRON 1 MG PO SCH ×2 (04:54→14:57)
[2018-08-19 05:15] LABS: Baso % (Auto) 0.2 % (0.0-2.0); Hematocrit 28.2 % (35.0-46.0); Hemoglobin 9.8 gm/dL (11.6-15.3); Lymph # (Auto) 0.2 th/mm3 (1.0-4.8); Lymph % (Auto) 4.2 % (9.0-44.0); Mean Corpuscular HGB Conc 34.8 % (32.0-36.0); Mean Corpuscular Hemoglobin 33.6 pg (27.0-34.0); Mean Corpuscular Volume 96.7 fL (80.0-100.0); Mean Platelet Volume 7.2 fL (7.0-11.0); Mono # (Auto) 0.1 th/mm3 (0.0-0.9); Mono % (Auto) 2.4 % (0.0-8.0); Neut # (Auto) 4.2 th/mm3 (1.8-7.7); Neut % (Auto) 93.2 % (16.0-70.0); Platelet Count 204 th/mm3 (150-450); Red Blood Count 2.92 mil/mm3 (4.00-5.30); Red Cell Distribution Width 22.1 % (11.6-17.2); White Blood Count 4.6 th/mm3 (4.0-11.0)
[2018-08-19 05:48] LABS: Alanine Aminotransferase 25 U/L (10-53); Albumin 2.7 g/dL (3.4-5.0); Alkaline Phosphatase 50 U/L (45-117); Anion Gap 15 meq/L (5-15); Aspartate Aminotransferase 9 U/L (15-37); Blood Urea Nitrogen 11 mg/dL (7-18); Calcium 7.6 mg/dL (8.5-10.1); Carbon Dioxide 26.2 meq/L (21.0-32.0); Chloride 103 meq/L (98-107); Glomerular Filtration Rate 84 mL/min (>89); Glucose,Random 382 mg/dL (74-106); Potassium 3.6 meq/L (3.5-5.1); Sodium 144 meq/L (136-145); Total Protein 5.3 g/dL (6.4-8.2)
[2018-08-19] MEDS: SODIUM CHLOR 0.9% IV.SIG SCH ×4 (07:48→17:21)
[2018-08-19] MEDS: CYCLOPHOSPHAMIDE IV.SIG SCH (07:48)
[2018-08-19] MEDS ORDERED: Dextrose 50% in Water 50 ML Vial IV.PUSH PRN (07:59)
[2018-08-19] MEDS: valACYclovir 500 MG Tab PO SCH (08:00)
[2018-08-19] MEDS: buPROPion 150 MG XL 24 HR Tablet PO SCH (08:00)
[2018-08-19] MEDS: Escitalopram 10 MG Tablet PO SCH (08:00)
[2018-08-19] MEDS: Heparin Central Flush 100 UNIT/ML 5 ML Vial IV.FLUSH SCH (08:01)
[2018-08-19] MEDS: Insulin NovoLIN Regular Correctional Sugar Inj SQ SCH ×4 (08:09→20:00)
--- NOTE | 2018-08-19 08:22 | P.PNONC ---
Subjective Interval history: Afebrile Pt sitting up in bed in no acute distress. She is looking forward to finishing her chemotherapy and going home later tonight She denies ever having had problems with her blood sugar in the past except when she is receiving steroids She has no acute complaints Objective Vital Signs/Intake & Output: Vital Signs 08/18/18 12:00 08/18/18 16:00 08/18/18 20:49 Temperature 98.4 F 96.8 F L 98.6 F Pulse Rate 75 75 Respiratory Rate 18 18 18 Blood Pressure 126/78 138/81 114/66 Pulse Oximetry 99 97 98 08/18/18 23:29 08/19/18 04:49 Temperature 98.1 F 98.1 F Pulse Rate 84 99 H Respiratory Rate 18 18 Blood Pressure 142/82 H 126/68 Pulse Oximetry 98 97 Intake & Output 08/18/18 08/19/18 08/19/18 18:59 06:59 18:59 Intake Total 3531.88 / 3531.88 490 / 490 66.48 / 66.48 Output Total 2300 / 2300 1300 / 1300 Balance 1231.88 / 1231.88 -810 / -810 66.48 / 66.48 Weight 205 lb 4.006 oz Intake: IV 2811.88 / 2811.88 250 / 250 66.48 / 66.48 Cytoxan Inj 594 MG In NS Inj 250 / 250 250 / 250 250 ML @ 83.333 mls/hr IV.SIG Q12H [facility] Rx#:[id number] Decadron Inj 40 MG Kytril Inj 1 61 / 61 MG In NS Inj 50 ML @ 244 mls/ hr IV.SIG Q24H [facility] Rx#:[id number] Mesnex Inj 1,188 MG In NS Inj 511.88 / 511.88 500 ML @ 21.328 mls/hr IV.SIG DAILY [facility] Rx#:[id number] Sodium Acetate Inj 100 MEQ In 2049 / 2049 D5W Inj 1,000 ML @ 70 mls/hr IV .SIG .[id number] [facility] Rx#:[id number] Oral 720 / 720 240 / 240 Output: Urine 2300 / 2300 1300 / 1300 Other: Date of Last Bowel Movement 08/18/18 08/18/18 Result Diagrams: 08/19/18 04:50 08/19/18 04:50 Laboratory Results: Laboratory Results - last 24 hr 08/18/18 08/19/18 08/19/18 04:00 04:50 04:50 WBC 4.6 RBC 2.92 L Hgb 9.8 L Hct 28.2 L MCV 96.7 MCH 33.6 MCHC 34.8 RDW 22.1 H Plt Count 204 MPV 7.2 Neut % (Auto) 93.2 H Lymph % (Auto) 4.2 L [place] % (Auto) 2.4 Eos % (Auto) 0.0 Baso % (Auto) 0.2 Neut # (Auto) 4.2 Lymph # (Auto) 0.2 L [place] # (Auto) 0.1 Eos # (Auto) 0.0 Baso # (Auto) 0.0 WBC Differential . . Diff Scan Auto diff confirmed Differential Comment Auto diff final Dimorphic RBCs Present H Polychromasia 2.5 H Tear Drop Cells 1+ H Ovalocytes 1+ H Sodium 144 Potassium 3.6 Chloride 103 Carbon Dioxide 26.2 Anion Gap 15 BUN 11 Creatinine 0.75 Estimated GFR 84 L Random Glucose 382 H D Calcium 7.6 L D Total Bilirubin 0.4 AST 9 L ALT 25 Alkaline Phosphatase 50 Total Protein 5.3 L D Albumin 2.7 L D Medications: Active Medications Generic Name Dose Route Start Last Admin Trade Name Freq PRN Reason Stop Dose Admin Alprazolam 0.5 mg 08/17/18 11:33 08/18/18 20:56 Xanax PO 0.5 mg Q8H PRN Administration Sleep or anxiety Bupropion HCl 150 mg 08/17/18 09:00 08/19/18 08:00 Wellbutrin Xl PO 150 mg DAILY [facility] Administration Escitalopram Oxalate 10 mg 08/17/18 09:00 08/19/18 08:00 Lexapro PO 10 mg DAILY [facility] Administration Granisetron HCl 1 mg 08/16/18 13:30 08/19/18 04:54 Kytril PO 08/20/18 01:31 1 mg Q12H [facility] Administration Heparin Sodium (Porcine) 0 unit 08/17/18 09:00 08/19/18 08:01 Heparin Central Flush IV.FLUSH 500 unit DAILY [facility] Administration [place] 1,188 mg/ Sodium 511.88 mls @ 21.328 mls/hr 08/16/18 13:00 08/18/18 17: 40 Chloride IV.SIG 08/19/18 08:59 21.33 mls/hr DAILY [facility] Administration Sodium Acetate 100 meq/ 1,025 mls @ 70 mls/hr 08/16/18 16:30 08/18/18 18:15 Dextrose IV.SIG 70 mls/hr .[id number] [facility] Administration Dexamethasone Sodium Phosphate 61 mls @ 244 mls/hr 08/17/18 17:00 08/19/18 07 :06 40 mg/ Granisetron HCl 1 mg/ IV.SIG 08/19/18 17:14 Infused Sodium Chloride Q24H [facility] Infusion Insulin Human Regular 0 units 08/19/18 08:00 08/19/18 08:09 Novolin R Correctional Sugar Inj SQ 7 units ACHS [facility] Administration Protocol Prochlorperazine Edisylate 10 mg 08/18/18 19:15 08/18/18 20:56 Compazine Inj IV.PUSH 10 mg Q6H PRN Administration NAUSEA Sodium Chloride 0 ml 08/17/18 09:00 08/19/18 08:01 Ns Flush IV.FLUSH 10 ml DAILY [facility] Administration Valacyclovir HCl 500 mg 08/17/18 09:00 08/19/18 08:00 Valtrex PO 500 mg DAILY [facility] Administration Objective Remarks: GENERAL: Younger female sitting up in bed in no acute distress SKIN: Warm and dry. HEAD: Normocephalic. EYES: No scleral icterus. No injection or drainage. NECK: Supple, trachea midline. No JVD or lymphadenopathy. CARDIOVASCULAR: Regular rate and rhythm without murmurs. RESPIRATORY: Breath sounds equal bilaterally. No accessory muscle use. GASTROINTESTINAL: Abdomen soft, non-tender, nondistended. EXTREMITIES: No cyanosis, or edema. MUSCULOSKELETAL: Adequate muscle tone. NEUROLOGICAL: No obvious focal deficit. Awake, alert, and oriented x3. Assessment/Plan - Plan Ms. Barrett is a 42-year-old female who was admitted to this facility for consolidation chemotherapy on hyper CVAD regimen. Plan: 1: She is tolerating therapy well. She will complete her chemotherapy at around 10 PM this evening. She is quite anxious to go home. She will take her outpatient medications upon discharge and has an appointment with Dr. Bautista early next week. In terms of the hyperglycemia I am going to start her on a sliding scale insulin dose today. We will follow-up on her blood sugar at her appointment with Dr. Bautista. I anticipate this will go back to normal after she completes the steroids as her blood sugar was normal on arrival to the hospital before we initiated hyper CVAD regimen. - Attending Statement The exam, history, and the medical decision-making described in the above note were completed with the assistance of the mid-level provider. I reviewed and agree with the findings presented. I attest that I had a [id number] encounter with the patient on the same day, and personally performed and documented my assessment and findings in the medical record. 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 Tolerating well.
[2018-08-19] MEDS ORDERED: vinCRIStine Inj 2 MG in Sodium Chlor 0.9% Inj 50 ML IV.SIG ONE (17:00)
[2018-08-19] MEDS: SODIUM ACETATE IV.SIG SCH ×4 (17:18→17:45)
[2018-08-19] MEDS: WATER IV.SIG SCH ×4 (17:18→17:45)
[2018-08-19] MEDS: DEXTROSE 5% IV.SIG SCH ×4 (17:18→17:45)
[2018-08-19] MEDS: MESNA IV.SIG SCH (17:18)
[2018-08-19] MEDS: GRANISETRON IV.SIG SCH ×2 (17:21)
[2018-08-19] MEDS: DEXAMETHASONE IV.SIG SCH ×2 (17:21)
[2018-08-19] MEDS ORDERED: DOXORUBICIN IV.SIG ONE (17:30)
[2018-08-19] MEDS ORDERED: SODIUM CHLOR 0.9% IV.SIG ONE (17:30)
[2018-08-19 21:37] VITALS: RESP 16
[2018-08-20] MEDS: GRANISETRON 1 MG PO SCH (00:49)
[2018-08-20 04:05] VITALS: BP 154/89; PULSE 87; TEMP 98.4; O2SAT 100
[2018-08-20] MEDS: Heparin Central Flush 100 UNIT/ML 5 ML Vial IV.FLUSH SCH (08:27)
--- NOTE | 2018-08-20 09:50 | P.DS ---
Date of admission: 08/16/18 08:09 Primary care physician: UNKNOWN Brief History from admission: Mrs. Barrett is a very pleasant 42-year-old female who developed neck stiffness in March 2018. She was sent to the emergency room at [facility] after her primary care physician found an elevated white blood cell count. 69% of the cells were lymphoblast and she was diagnosed with acute lymphoblastic leukemia. She has been evaluated at the [facility] at [facility] where she saw Dr. Felix. She was hospitalized with diagnosis of acute lymphoblastic leukemia which was found to be [place] chromosome negative. She was started in March 2018 with a hyper CVAD regimen. She is in remission. She is due for bone marrow transplant in October 2018. She has come into the hospital for consolidation chemotherapy. She received another round of hyper CVAD. She is tolerated the chemotherapy very well. She will be discharged home on her prophylactic antibiotics and has follow-up with Dr. Bautista in the clinic this upcoming week. DS: Summary Hospital Course: Patient received chemotherapy with hyper CVAD for consolidation prior to scheduled transplant in October at [facility]. She tolerated chemotherapy very well with no complaints. She received intrathecal chemotherapy m per protocol on October [address] Rainey. - Time Spent with Patient Total time spent providing and/or coordinating discharge services: Less than 30 minutes - Quality: VTE Deep Vein Thrombosis/Pulmonary Embolism Present on Admission: No Exam Vital signs: Vital Signs 08/19/18 12:00 08/19/18 20:00 08/20/18 00:00 Temperature 98.4 F 98.2 F 98.1 F Pulse Rate 96 H 97 H 85 Respiratory Rate 18 16 16 Blood Pressure 140/87 150/82 H 124/66 Pulse Oximetry 98 98 98 08/20/18 04:00 Temperature 98.4 F Pulse Rate 87 Respiratory Rate 16 Blood Pressure 154/89 H Pulse Oximetry 100 Intake & Output 08/19/18 08/20/18 08/20/18 18:59 06:59 18:59 Intake Total 3254.36 / 3254.36 1253 / 1253 900 / 900 Output Total 2500 / 2500 3550 / 3550 Balance 754.36 / 754.36 -2297 / -2297 900 / 900 Weight 204 lb 9.423 oz Intake: IV 1914.36 / 1914.36 293 / 293 900 / 900 Cytoxan Inj 594 MG In NS Inj 250 / 250 250 ML @ 83.333 mls/hr IV.SIG Q12H [facility] Rx#:[id number] Adriamycin Inj 99 MG In NS Inj 110 / 110 50 ML @ 49.75 mls/hr IV.SIG ONCE ONE Rx#:[id number] Decadron Inj 40 MG Kytril Inj 1 122 / 122 MG In NS Inj 50 ML @ 244 mls/ hr IV.SIG Q24H [facility] Rx#:[id number] Mesnex Inj 1,188 MG In NS Inj 511.88 / 511.88 500 ML @ 21.328 mls/hr IV.SIG DAILY [facility] Rx#:[id number] Sodium Acetate Inj 100 MEQ In 1025 / 1025 900 / 900 D5W Inj 1,000 ML @ 70 mls/hr IV .SIG .[id number] [facility] Rx#:[id number] Oncovin Inj 2 MG In NS Inj 50 55 / 55 ML @ 312 mls/hr IV.SIG ONCE ONE Rx#:[id number] Oral 1340 / 1340 960 / 960 Output: Urine 2500 / 2500 3550 / 3550 Other: Date of Last Bowel Movement 08/19/18 08/19/18 # Bowel Movements 1 - Constitutional no acute distress - Routine HEENT Exam Head: Present: normocephalic Eye: Present: EOMI, PERRL, normal accommodation ENT: Present: mucous membranes moist - Routine Neck Exam Present: supple - Routine Respiratory Exam Present: CTA bilaterally - Routine Cardiovascular Exam Present: S1, S2 - Routine Abdominal Exam Present: soft - Routine Skin Exam Present: intact - Routine Neurological Exam Present: alert, oriented X3 Results Procedures completed during hospitalization: Intrathecal chemotherapy was delivered on August 17 Labs on day of discharge: Labs from last 24 hours 08/20/18 08/19/18 08/19/18 08:27 19:48 16:20 POC Glucose 126 H 186 H 96 08/19/18 11:25 POC Glucose 82 - Impressions ITS Impressions Lumbar Puncture 08/17/18 00:00 CONCLUSION: 1. Uncomplicated fluoroscopically guided lumbar puncture with chemotherapy injection. Discharge Plan - Discharge Disposition Patient Disposition: 01 Discharge Home - Discharge Condition Condition: Good - Discharge Order Discharge Orders: Discharge Order (Routine); Ordered 08/20/18 Ordered By: Tamara Jack - Physicians Team Primary Care Provider: UNKNOWN, Attending Provider: Russ Bautista - Rxs /Orders / Referrals /Forms Prescriptions: Continue bupropion HCl [Wellbutrin XL] 150 mg Tablet Extended Release 24 Hr 150 mg PO QAM cetirizine [Zyrtec] 10 mg Tablet 10 mg PO DAILY Diflucan 200 mg PO DAILY escitalopram oxalate [Lexapro] 10 mg Tablet 10 mg PO DAILY fluticasone-salmeterol [Advair Diskus] 250-50 mcg/dose Blister With Device 1 inh INHALATION Q12H levofloxacin [Levaquin] 750 mg Tablet 1 tab PO DAILY sulfamethoxazole-trimethoprim [Bactrim] 400-80 mg Tablet 1 tab PO DAILY valacyclovir [Valtrex] 1 gram Tablet 1,000 mg PO DAILY Referrals: UNKNOWN, [Primary Care Provider] - See Instructions
== END 2018-08-20 08:39 | disposition home or self-care (01) | DRG 839 ==
LOC: HCIN 08:09
PROVIDERS: ADMIT Internal Medicine Hematology & Oncology; ATTEND Internal Medicine Hematology & Oncology
CPT/HCPCS: 36430; 77003; 80053; 82948; 82962; 85025; 85610; 85730; 86850; 86900; 86901; 86923; 96450; C1018; J0780; J1100; J1626; J1642; J7040; J7050; J7070; J9000; J9070; J9209; J9250; J9370; P9040; Q0166